=== PATIENT | male | born 1985 | race Caucasian/White ===

== ENCOUNTER 2017-07-15 11:33 | Emergency (ER) | payer OTHER ==
[~2017-07-15] VITALS: Ht 177.8 cm; Wt 114.0 kg
[2017-07-15 14:13] VITALS: BP 145/93
[2017-07-15] MEDS ORDERED: SODIUM CHLORIDE 0.9% 1,000 ML IV ONE (14:21)
[2017-07-15] MEDS ORDERED: ONDANSETRON HCL 4MG/2ML VIAL IV STA (14:21)
[2017-07-15 15:01] LABS: BASOPHILS % 1.4 % (0.0-2.0); HEMATOCRIT. 44.5 % (42.0-52.0); HEMOGLOBIN. 15.2 g/dL (14.0-18.0); LYMPHOCYTES % 16.3 % (20.0-50.0); MEAN CORPUSCULAR HEMOGLOBIN 31.8 pg (28.0-32.0); MEAN CORPUSCULAR VOLUME 93.4 fL (80.0-94.0); MEAN PLATELET VOLUME 9.7 fl (7.4-10.4); MONOCYTES % 10.5 % (2.0-8.0); NEUTROPHILS % 70.8 % (40.0-76.0); PLATELET 200 x1000/uL (130-400); RED BLOOD CELL COUNT 4.77 mill/uL (4.7-6.1); RED CELL DISTRIBUTION WIDTH 15.9 % (11.6-14.6)
[2017-07-15 15:14] LABS: CARBON DIOXIDE 27 mEq/L (21-32); CHLORIDE 100 mEq/L (98-107); ETHANOL BLOOD < 10 mg/dL
[2017-07-15 15:57] LABS: CLARITY URINE CLEAR (CLEAR); COLOR URINE YELLOW (YELLOW); KETONES URINE NEGATIVE (NEGATIVE); LEUKOCYTE ESTERASE URINE NEGATIVE (NEGATIVE); NITRITE URINE NEGATIVE (NEGATIVE); OCCULT BLOOD URINE NEGATIVE (NEGATIVE); PROTEIN URINE NEGATIVE (NEGATIVE); SPECIFIC GRAVITY URINE 1.008 (1.005-1.030)
[2017-07-15 16:15] LABS: *AMPHETAMINES SCREEN URINE NEGATIVE (NEGATIVE); *BARBITURATES SCREEN URINE NEGATIVE (NEGATIVE); *BENZODIAZEPINES SCREEN URINE NEGATIVE (NEGATIVE); *COCAINE SCREEN URINE NEGATIVE (NEGATIVE); CANNABINOID URINE SCREEN PRESUMTIVE POSITIVE (NEGATIVE); METHADONE URINE SCREEN NEGATIVE (NEGATIVE); OPIATES URINE SCREEN NEGATIVE (NEGATIVE); PHENCYCLIDINE URINE SCREEN NEGATIVE (NEGATIVE)
== END 2017-07-15 16:29 | disposition home or self-care (01) ==
LOC: ER 11:38
DX: R25.8 Other abnormal involuntary movements (principal)
CPT/HCPCS: 36415; 80053; 80305; 81003; 85025; 96361; 96374; 99284; G0482; J2405; J7030; Z7610

== ENCOUNTER 2017-07-18 02:52 | Emergency (ER) | payer OTHER ==
[~2017-07-18] VITALS: Ht 175.3 cm; Wt 110.3 kg
[2017-07-18] MEDS ORDERED: HYDROCODONE/ACETAMINOPHEN 10/325MG TABLET PO ONE (04:30)
[2017-07-18 04:35] VITALS: BP 129/78
== END 2017-07-18 05:57 | disposition home or self-care (01) ==
LOC: ER 02:52
DX: S83.014A Lateral dislocation of right patella, initial encounter (principal); X58.XXXA Exposure to other specified factors, initial encounter; Y93.01 Activity, walking, marching and hiking; Y92.89 Other specified places as the place of occurrence of the external cause; Z87.891 Personal history of nicotine dependence
CPT/HCPCS: 29505; 73560; 99284; Z7610

== ENCOUNTER 2018-11-16 19:21 | Emergency (ER) | payer MEDICAID, OTHER ==
[~2018-11-16] VITALS: Ht 177.8 cm; Wt 90.0 kg
[2018-11-16] MEDS ORDERED: FOLIC ACID 1 MG, THIAMINE HCL 100 MG, MVI, ADULT NO.1 10 ML in DEXTROSE 5% WATER 1,000 ML IV ONE ×4 (23:15)
[2018-11-16] MEDS ORDERED: LORAZEPAM 2MG/ML CPJ IV ONE (23:15)
[2018-11-17 06:00] VITALS: BP 118/71
== END 2018-11-17 06:07 | disposition home or self-care (01) ==
LOC: ER 19:21
DX: F10.129 Alcohol abuse with intoxication, unspecified (principal); R00.0 Tachycardia, unspecified; F15.10 Other stimulant abuse, uncomplicated; Y90.8 Blood alcohol level of 240 mg/100 ml or more
CPT/HCPCS: 36415; 80320; 96365; 96366; 96375; 99284; J2060; J3411; J3490; J7070; Z7610; G0480

== ENCOUNTER 2018-11-22 22:13 | Emergency (ER) | payer SELFPAY ==
[2018-11-23] MEDS ORDERED: HYDROCODONE/ACETAMINOPHEN 5/325MG TABLET PO ONE (00:15)
[2018-11-23 00:36] VITALS: BP 128/93
== END 2018-11-23 02:41 | disposition home or self-care (01) ==
LOC: ER 22:13
DX: M25.461 Effusion, right knee (principal); G40.909 Epilepsy, unspecified, not intractable, without status epilepticus; F12.10 Cannabis abuse, uncomplicated; F15.10 Other stimulant abuse, uncomplicated
CPT/HCPCS: 29505; 73562; 99283

== ENCOUNTER 2020-06-24 18:49 | Emergency (ER) | payer MEDICAID ==
[~2020-06-24] VITALS: Ht 177.8 cm; Wt 91.0 kg
[2020-06-24] MEDS ORDERED: KETOROLAC 60MG/2ML VIAL IM ONE (19:00)
[2020-06-24 19:05] VITALS: BP 126/82
== END 2020-06-24 20:39 | disposition left against medical advice (07) ==
LOC: ER 18:49
DX: M25.561 Pain in right knee (principal); F10.129 Alcohol abuse with intoxication, unspecified; F12.10 Cannabis abuse, uncomplicated; F15.10 Other stimulant abuse, uncomplicated; Y90.9 Presence of alcohol in blood, level not specified
CPT/HCPCS: 99283

== ENCOUNTER 2020-06-24 20:41 | Emergency (ER) | payer MEDICAID ==
[~2020-06-24] VITALS: Ht 177.8 cm; Wt 91.0 kg
[2020-06-24 20:43] VITALS: BP 130/75
== END 2020-06-25 00:47 | disposition left against medical advice (07) ==
LOC: ER 20:41
DX: M25.461 Effusion, right knee (principal); F10.129 Alcohol abuse with intoxication, unspecified; Y90.9 Presence of alcohol in blood, level not specified; R03.0 Elevated blood-pressure reading, without diagnosis of hypertension; Z71.89 Other specified counseling; G40.909 Epilepsy, unspecified, not intractable, without status epilepticus
CPT/HCPCS: 99283

== ENCOUNTER 2020-07-14 20:09 | Emergency (ER) | payer MEDICAID ==
[~2020-07-14] VITALS: Ht 175.3 cm; Wt 75.0 kg
[2020-07-14] MEDS ORDERED: SODIUM CHLORIDE 0.9% 1,000 ML IV ONE (21:00)
[2020-07-14 21:21] LABS: BASOPHILS % 1.3 % (0.0-2.0); EOSINOPHILS % 1.9 % (0.0-5.0); HEMATOCRIT. 37.5 % (42.0-52.0); HEMOGLOBIN. 12.7 g/dL (14.0-18.0); LYMPHOCYTES % 26.1 % (20.0-50.0); MEAN CORPUSCULAR HEMOGLOBIN 29.6 pg (28.0-32.0); MEAN CORPUSCULAR VOLUME 87.6 fL (80.0-94.0); MEAN PLATELET VOLUME 8.5 fl (7.4-10.4); MONOCYTES % 11.5 % (2.0-8.0); NEUTROPHILS % 59.2 % (40.0-76.0); PLATELET 73 x1000/uL (130-400); RED BLOOD CELL COUNT 4.28 mill/uL (4.7-6.1); RED CELL DISTRIBUTION WIDTH 18.4 % (11.6-14.6)
[2020-07-14 21:22] LABS: CHLORIDE 106 mEq/L (98-107)
[2020-07-14 21:24] LABS: INR 1.1; PROTHROMBIN TIME 11.9 sec (9.6-11.0)
[2020-07-14 21:46] LABS: ETHANOL BLOOD 473 mg/dL
[2020-07-15] MEDS ORDERED: CHLORDIAZEPOXIDE 10MG CAPSULE PO ONE (00:15)
[2020-07-15 04:01] VITALS: BP 127/72
== END 2020-07-15 04:03 | disposition home or self-care (01) ==
LOC: ER 20:12
DX: T51.0X1A Toxic effect of ethanol, accidental (unintentional), initial encounter (principal); Y92.89 Other specified places as the place of occurrence of the external cause; I10 Essential (primary) hypertension; F12.10 Cannabis abuse, uncomplicated; F15.10 Other stimulant abuse, uncomplicated
CPT/HCPCS: 36415; 80053; 80320; 83690; 85025; 85610; 96360; 99283; J7030; G0480

== ENCOUNTER 2020-07-23 23:46 | Emergency (ER) | payer MEDICAID ==
[~2020-07-23] VITALS: Ht 177.8 cm; Wt 100.0 kg
[2020-07-24 01:07] VITALS: BP 138/54
== END 2020-07-24 01:16 | disposition home or self-care (01) ==
LOC: ER 23:46
DX: F10.229 Alcohol dependence with intoxication, unspecified (principal); F12.10 Cannabis abuse, uncomplicated; F15.10 Other stimulant abuse, uncomplicated; Y90.9 Presence of alcohol in blood, level not specified
CPT/HCPCS: 71045; 93005; 99283

== ENCOUNTER 2020-07-26 22:42 | Emergency (ER) | payer MEDICAID ==
[~2020-07-26] VITALS: Ht 175.3 cm; Wt 77.0 kg
[2020-07-26] MEDS ORDERED: SODIUM CHLORIDE 0.9% 1,000 ML IV ONE (23:30)
[2020-07-26 23:43] LABS: BASOPHILS % 3.2 % (0.0-2.0); EOSINOPHILS % 2.6 % (0.0-5.0); HEMATOCRIT. 36.3 % (42.0-52.0); LYMPHOCYTES % 27.9 % (20.0-50.0); MEAN CORPUSCULAR HEMOGLOBIN 29.4 pg (28.0-32.0); MEAN CORPUSCULAR VOLUME 88.9 fL (80.0-94.0); MEAN PLATELET VOLUME 8.4 fl (7.4-10.4); MONOCYTES % 14.3 % (2.0-8.0); PLATELET 126 x1000/uL (130-400); RED BLOOD CELL COUNT 4.08 mill/uL (4.7-6.1)
[2020-07-26 23:53] LABS: CHLORIDE 106 mEq/L (98-107)
[2020-07-26 23:57] LABS: CLARITY URINE CLEAR (CLEAR); COLOR URINE YELLOW (YELLOW); KETONES URINE NEGATIVE (NEGATIVE); LEUKOCYTE ESTERASE URINE NEGATIVE (NEGATIVE); NITRITE URINE NEGATIVE (NEGATIVE); OCCULT BLOOD URINE NEGATIVE (NEGATIVE); PROTEIN URINE NEGATIVE (NEGATIVE); SPECIFIC GRAVITY URINE 1.005 (1.005-1.030)
[2020-07-27 00:08] LABS: *AMPHETAMINES SCREEN URINE NEGATIVE (NEGATIVE); *BARBITURATES SCREEN URINE NEGATIVE (NEGATIVE); *BENZODIAZEPINES SCREEN URINE PRESUMTIVE POSITIVE (NEGATIVE); *COCAINE SCREEN URINE NEGATIVE (NEGATIVE); CANNABINOID URINE SCREEN NEGATIVE (NEGATIVE); METHADONE URINE SCREEN NEGATIVE (NEGATIVE); OPIATES URINE SCREEN NEGATIVE (NEGATIVE); PHENCYCLIDINE URINE SCREEN NEGATIVE (NEGATIVE)
[2020-07-27 00:16] LABS: ETHANOL BLOOD 428 mg/dL
[2020-07-27 05:50] VITALS: BP 123/72
== END 2020-07-27 06:07 | disposition home or self-care (01) ==
LOC: ER 22:42
DX: F10.129 Alcohol abuse with intoxication, unspecified (principal); F14.10 Cocaine abuse, uncomplicated; F15.10 Other stimulant abuse, uncomplicated; Y90.8 Blood alcohol level of 240 mg/100 ml or more
CPT/HCPCS: 36415; 80048; 80305; 80320; 81003; 85025; 93005; 96360; 99285; J7030; G0480

== ENCOUNTER 2020-10-24 22:30 | Emergency (ER) | payer MEDICAID ==
[~2020-10-24] VITALS: Ht 177.8 cm; Wt 100.0 kg
[2020-10-24 22:32] VITALS: BP 124/82
== END 2020-10-24 23:27 | disposition home or self-care (01) ==
LOC: ER 22:30
DX: F10.129 Alcohol abuse with intoxication, unspecified (principal); Y90.9 Presence of alcohol in blood, level not specified
CPT/HCPCS: 93005; 99283

== ENCOUNTER 2021-05-25 23:14 | Emergency (ER) | payer MEDICAID ==
[~2021-05-25] VITALS: Ht 172.7 cm; Wt 86.0 kg
[2021-05-25 23:17] VITALS: BP 128/80
[2021-05-25] MEDS ORDERED: KETOROLAC 60MG/2ML VIAL IM ONE (23:30)
== END 2021-05-26 00:45 | disposition home or self-care (01) ==
LOC: ER 23:14
DX: M25.561 Pain in right knee (principal)
CPT/HCPCS: 73562; 99283

== ENCOUNTER 2021-06-06 22:34 | Emergency (ER) | payer MEDICAID ==
[~2021-06-06] VITALS: Ht 172.7 cm; Wt 78.0 kg
[2021-06-06] MEDS ORDERED: SODIUM CHLORIDE 0.9% 1,000 ML IV ONE (23:15)
[2021-06-06] MEDS ORDERED: PERMETHRIN 5% CREAM 60GM TOP ONE (23:15)
[2021-06-06 23:29] LABS: BASOPHILS % 0.7 % (0.0-2.0); EOSINOPHILS % 4.4 % (0.0-5.0); HEMATOCRIT. 33.3 % (42.0-52.0); HEMOGLOBIN. 11.1 g/dL (14.0-18.0); LYMPHOCYTES % 31.9 % (20.0-50.0); MEAN CORPUSCULAR HEMOGLOBIN 30.3 pg (28.0-32.0); MEAN CORPUSCULAR VOLUME 90.6 fL (80.0-94.0); MEAN PLATELET VOLUME 9.1 fl (7.4-10.4); MONOCYTES % 12.6 % (2.0-8.0); NEUTROPHILS % 50.4 % (40.0-76.0); PLATELET 64 x1000/uL (130-400); RED BLOOD CELL COUNT 3.68 mill/uL (4.7-6.1); RED CELL DISTRIBUTION WIDTH 16.1 % (11.6-14.6)
[2021-06-06 23:36] LABS: CHLORIDE 109 mEq/L (98-107)
[2021-06-07 00:03] LABS: ETHANOL BLOOD 375 mg/dL
[2021-06-07] MEDS ORDERED: PERM60CR4 TP (04:04)
[2021-06-07 05:55] VITALS: BP 140/90
== END 2021-06-07 06:37 | disposition home or self-care (01) ==
LOC: ER 22:34
DX: F10.229 Alcohol dependence with intoxication, unspecified (principal); B86 Scabies; Y90.8 Blood alcohol level of 240 mg/100 ml or more
CPT/HCPCS: 36415; 70450; 80053; 80320; 85025; 96360; 96361; 99284; J7030; G0480

== ENCOUNTER 2021-06-08 23:08 | Emergency (ER) | payer MEDICAID ==
[~2021-06-08] VITALS: Ht 172.7 cm; Wt 91.0 kg
[~2021-06-08 23:08] MED LIST: PERM60CR4 TP
[2021-06-08 23:25] VITALS: BP 150/80
== END 2021-06-09 06:05 | disposition home or self-care (01) ==
LOC: ER 23:33
DX: F10.129 Alcohol abuse with intoxication, unspecified (principal); Y90.8 Blood alcohol level of 240 mg/100 ml or more
CPT/HCPCS: 36415; 80320; 99283; G0480

== ENCOUNTER 2021-06-11 18:51 | Emergency (ER) | payer MEDICAID ==
[~2021-06-11] VITALS: Ht 172.7 cm; Wt 85.0 kg
[2021-06-11] MEDS ORDERED: MAGNESIUM/ALUMINUM HYDROXIDE/SIMETHICONE 30ML UDC PO STA (19:36)
[2021-06-11] MEDS ORDERED: KETOROLAC 60MG/2ML VIAL IM STA (19:36)
[2021-06-11 20:51] LABS: BASOPHILS % 1.4 % (0.0-2.0); EOSINOPHILS % 3.3 % (0.0-5.0); HEMATOCRIT. 35.9 % (42.0-52.0); HEMOGLOBIN. 12.2 g/dL (14.0-18.0); LYMPHOCYTES % 28.9 % (20.0-50.0); MEAN CORPUSCULAR HEMOGLOBIN 30.7 pg (28.0-32.0); MEAN CORPUSCULAR VOLUME 90.1 fL (80.0-94.0); MONOCYTES % 9.7 % (2.0-8.0); NEUTROPHILS % 56.7 % (40.0-76.0); RED BLOOD CELL COUNT 3.98 mill/uL (4.7-6.1); RED CELL DISTRIBUTION WIDTH 16.1 % (11.6-14.6)
[2021-06-11 20:56] LABS: CHLORIDE 107 mEq/L (98-107)
[2021-06-11 22:40] LABS: MEAN PLATELET VOLUME 8.8 fl (7.4-10.4); PLATELET 52 x1000/uL (130-400)
[2021-06-12 04:49] VITALS: BP 130/86
== END 2021-06-12 05:05 | disposition home or self-care (01) ==
LOC: ER 18:51
DX: R10.13 Epigastric pain (principal); F10.229 Alcohol dependence with intoxication, unspecified; Y90.0 Blood alcohol level of less than 20 mg/100 ml
CPT/HCPCS: 36415; 80053; 80320; 83690; 85025; 96372; 99283; J1885; G0480

== ENCOUNTER 2021-07-03 12:32 | Emergency (ER) | payer MEDICAID ==
[~2021-07-03] VITALS: Ht 167.6 cm; Wt 80.0 kg
[2021-07-03 17:10] LABS: BASOPHILS % 3.1 % (0.0-2.0); EOSINOPHILS % 2.2 % (0.0-5.0); HEMATOCRIT. 28.8 % (42.0-52.0); HEMOGLOBIN. 9.7 g/dL (14.0-18.0); LYMPHOCYTES % 21.9 % (20.0-50.0); MEAN CORPUSCULAR HEMOGLOBIN 29.3 pg (28.0-32.0); MEAN CORPUSCULAR VOLUME 87.3 fL (80.0-94.0); MEAN PLATELET VOLUME 7.9 fl (7.4-10.4); NEUTROPHILS % 59.8 % (40.0-76.0); PLATELET 181 x1000/uL (130-400); RED CELL DISTRIBUTION WIDTH 16.7 % (11.6-14.6)
[2021-07-03] MEDS ORDERED: LEVETIRACETAM 500MG PREMIX 100 ML IV ONE (17:15)
[2021-07-03 17:19] LABS: CHLORIDE 106 mEq/L (98-107)
[2021-07-03 17:23] LABS: ETHANOL BLOOD < 10 mg/dL
[2021-07-03] MEDS ORDERED: CHLORDIAZEPOXIDE 25MG CAPSULE PO ONE (18:00)
[2021-07-03] MEDS ORDERED: KEPP500 MT (20:44)
[2021-07-03] MEDS ORDERED: ACETAMINOPHEN 325MG TABLET PO ONE (21:15)
[2021-07-03 22:30] VITALS: BP 132/73
== END 2021-07-03 22:52 | disposition home or self-care (01) ==
LOC: ER 12:32
DX: R56.9 Unspecified convulsions (principal); F17.290 Nicotine dependence, other tobacco product, uncomplicated; Z20.822 Contact with and (suspected) exposure to COVID-19
CPT/HCPCS: 36415; 70450; 80053; 80307; 80320; 80329; 83690; 83880; 84484; 85025; 87426; 93005; 96365; 96366; 99285; 99406; J1953; G0480

== ENCOUNTER 2021-07-28 22:18 | Emergency (ER) | payer MEDICAID ==
[~2021-07-28] VITALS: Ht 172.7 cm; Wt 82.0 kg
[~2021-07-28 22:18] MED LIST changes: +KEPP500 MT
[2021-07-29] MEDS ORDERED: ONDANSETRON HCL 4MG/2ML INJ IV ONE (01:45)
[2021-07-29 06:00] VITALS: BP 119/69
== END 2021-07-28 23:45 | disposition home or self-care (01) ==
LOC: ER 22:18
DX: F10.129 Alcohol abuse with intoxication, unspecified (principal); Z79.891 Long term (current) use of opiate analgesic; Z86.59 Personal history of other mental and behavioral disorders; Y90.9 Presence of alcohol in blood, level not specified
CPT/HCPCS: 99285

== ENCOUNTER 2021-08-04 18:26 | Emergency (ER) | payer MEDICAID ==
[~2021-08-04] VITALS: Ht 180.3 cm; Wt 85.0 kg
[2021-08-04 18:37] VITALS: BP 105/59
[2021-08-04 19:50] LABS: BASOPHILS % 1.4 % (0.0-2.0); EOSINOPHILS % 1.4 % (0.0-5.0); HEMATOCRIT. 36.9 % (42.0-52.0); HEMOGLOBIN. 12.4 g/dL (14.0-18.0); LYMPHOCYTES % 24.7 % (20.0-50.0); MEAN CORPUSCULAR HEMOGLOBIN 28.9 pg (28.0-32.0); MEAN CORPUSCULAR VOLUME 85.9 fL (80.0-94.0); MONOCYTES % 12.8 % (2.0-8.0); NEUTROPHILS % 59.7 % (40.0-76.0); RED CELL DISTRIBUTION WIDTH 21.6 % (11.6-14.6)
[2021-08-04 20:01] LABS: CHLORIDE 100 mEq/L (98-107)
[2021-08-04 20:15] LABS: ETHANOL BLOOD 387 mg/dL
[2021-08-04 20:48] LABS: MEAN PLATELET VOLUME 8.9 fl (7.4-10.4); PLATELET 58 x1000/uL (130-400)
[2021-08-04] MEDS ORDERED: CHLORDIAZEPOXIDE 25MG CAPSULE PO ONE (22:30)
== END 2021-08-04 23:15 | disposition left against medical advice (07) ==
LOC: ER 18:26
DX: F10.10 Alcohol abuse, uncomplicated (principal); Z98.890 Other specified postprocedural states; Z86.59 Personal history of other mental and behavioral disorders; Y90.8 Blood alcohol level of 240 mg/100 ml or more
CPT/HCPCS: 36415; 80053; 80320; 83880; 84484; 85025; 93005; 99283; G0480